=== PATIENT | female | born 1995 | race Caucasian/White ===

== ENCOUNTER → 2018-03-22 | Outpatient (CLI) | payer OTHER ==
[~2018-03-22] MED LIST: ASPI-691 PO; CYCL-259 PO; DICL75TA2 PO; GABA300C10 PO; METF500T17 PO; MULT-212 PO; NAPR-685 PO; NORE1TAB PO; TIZA2TAB PO
== END | disposition home or self-care (01) ==
LOC: RAD 14:31
PROVIDERS: ATTEND Family Medicine
DX: R51 Headache (principal)
CPT/HCPCS: 70450